=== PATIENT | male | born 1955 | race Caucasian/White ===

== ENCOUNTER 2018-05-29 16:15 | Emergency (ER) | payer BC ==
[2018-05-29 16:29] VITALS: BP 144/75
--- NOTE | 2018-05-29 16:52 | ED Physician Documentation ---
PD HPI LOWER EXT INJURY - Stated complaint Stated Complaint: R TOE PX - Chief complaint Chief Complaint: Trauma Ext - History obtained from History obtained from: Patient - History of Present Illness PD HPI LOW EXT INJURY LOCATION: Right, Toe (5th) Type of injury: Blunt / blow Where injury occurred: Home Timing - onset: Yesterday Worsened by: Moving, Palpating Similar symptoms before: Has not had sx before - Additional information Additional information: The patient is a 63-year-old male who stubbed his right little toe on the bedpost yesterday. He denies any other injuries. He terry taped the little toe to the fourth toe prior to arrival. Review of Systems Constitutional: denies: Fever Musculoskeletal: reports: Extremity pain (Right little toe.). denies: Extremity swelling Neurologic: denies: Focal weakness, Numbness PD PAST MEDICAL HISTORY - Past Medical History Cardiovascular: Hypertension, High cholesterol : Renal insuffiency Psych: Depression Musculoskeletal: Gout - Past Surgical History Past Surgical History: No - Present Medications Home Medications: Ambulatory Orders Medication Instructions Recorded Confirmed Albuterol Sulfate [Proventil Hfa] 90 mcg 09/29/15 Allopurinol 300 mg 09/29/15 Beclomethasone Dipropionate [Qvar] 09/29/15 Bupropion HCl [Wellbutrin Xl] 300 mg 09/29/15 Cholecalciferol (Vitamin D3) 1,000 unit 09/29/15 [Vitamin D3] Ciclopirox [Penlac] 09/29/15 09/29/15 Citalopram [CeleXA] 20 mg 09/29/15 Colchicine 0.6 mg 09/29/15 Ferrous Sulfate 325 mg 09/29/15 Furosemide [Lasix] 40 mg 09/29/15 Ipratropium [place] [Atrovent Hfa] 12.9 gm 09/29/15 Metoprolol Succinate 50 mg 09/29/15 Metoprolol Succinate [Toprol Xl] 50 mg 09/29/15 [place]-3 Acid Ethyl Esters [Lovaza] 4 gm 09/29/15 Omeprazole [PriLOSEC] 20 mg 09/29/15 Pravastatin Sodium [Pravachol] 80 mg 09/29/15 Psyllium [Metamucil] 0.52 gm 09/29/15 Ropinirole HCl [Requip] 1 mg 09/29/15 Tadalafil [Cialis] 5 mg 09/29/15 Valsartan [Diovan] 80 mg 09/29/15 traZODone [Desyrel] 50 mg 09/29/15 - Allergies Allergies/Adverse Reactions: Allergies Allergy/AdvReac Type Severity Reaction Status Date / Time lactose Allergy Unknown Verified 05/29/18 16:29 lorazepam Allergy Unknown Verified 05/29/18 16:29 NSAIDS (Non-Steroidal Allergy Unknown Verified 05/29/18 16:29 Anti-Inflamma oyster extract Allergy Unknown Verified 05/29/18 16:29 Sulfa (Sulfonamide Allergy Rash Verified 05/29/18 16:29 Antibiotics) tramadol AdvReac Hallucinati Verified 05/29/18 16:29 ons warfarin AdvReac Unknown Verified 05/29/18 16:29 zolpidem tartrate * AdvReac Hallucinati Verified 05/29/18 16:29 [From Ambien] ons - Social History Does the pt smoke?: No Smoking Status: Never smoker Does the pt drink ETOH?: Yes Does the pt have substance abuse?: No - Immunizations Immunizations are current?: Yes PD ED PE NORMAL - Vitals Vital signs reviewed: Yes (Borderline systolic hypertension.) - General General: Alert and oriented X 3, Well developed/nourished, Other (Overweight.) - HEENT HEENT: Atraumatic - Respiratory Respiratory: No respiratory distress - Derm Derm: No rash - Extremities Extremities: Other (There is swelling, slight ecchymosis, with tenderness to palpation of the right little toe. There is no tenderness to palpation of the foot or the other toes. There is no break in the integument. Distal neurovascular is intact.) - Neuro Neuro: Alert and oriented X 3, No motor deficit, No sensory deficit Results - Vitals Vitals: Oxygen O2 Source Room air PD MEDICAL DECISION MAKING - ED course Complexity details: considered differential, d/w patient ED course: The patient's presentation is significant for contusion to the right little toe. I discussed with him that an x-ray would be of limited clinical benefit, in that it would not result in modification of treatment regardless of whether it showed a fracture or not. I advised him that treatment would be terry taping of the toe regardless. Given this advice he chooses to forego x-ray examination. I discussed with him the expected course of injury, symptomatic treatment, as well as potentially worrisome signs or symptoms that should prompt reevaluation. Departure - Departure Disposition: 01 Home, Self Care Clinical Impression: Encounter for medical screening examination Injury of toe on right foot Qualifiers: Encounter type: initial encounter Qualified Code(s): S99.921A - Unspecified injury of right foot, initial encounter Condition: Stable Instructions: ED Contusion Lower Ext Follow-Up: Carlos Alberto Bryan MD [Primary Care Provider] - Comments: Keep your right foot elevated as much the time as possible. You can use acetaminophen up to 650 mg 4 times daily. Keep your little toe terry taped to the fourth toe. Let pain be your guide to activity level. Follow-up with your primary physician, or return to the emergency department, if you develop increasing pain or swelling, or otherwise worsening symptoms. Discharge Date/Time: 05/29/18 16:55
== END 2018-05-29 16:55 | disposition home or self-care (01) ==
LOC: ED 16:15
DX: S99.921A Unspecified injury of right foot, initial encounter (principal); W22.09XA Striking against other stationary object, initial encounter; Y92.009 Unspecified place in unspecified non-institutional (private) residence as the place of occurrence of the external cause; I10 Essential (primary) hypertension; E78.00 Pure hypercholesterolemia, unspecified
CPT/HCPCS: 99282; 99283

== ENCOUNTER 2020-09-26 03:26 | Emergency (ER) | payer BC ==
--- NOTE | 2020-09-26 03:44 | ED Physician Documentation ---
PD HPI BACK PAIN - Stated complaint Stated Complaint: BACK PX - Chief complaint Chief Complaint: Back Pain - History obtained from History obtained from: Patient - History of Present Illness Timing - onset: Enter time (10:30), Today Timing - duration: Hours Timing - details: Abrupt onset Pain level now: 8 Location: Lower, Right, Left Quality: Pain, Spasm Associated symptoms: No: Fever, Weakness, Numbness, Incontinent of urine, Unable to urinate, Hematuria, Incontinent of stool Improves with: Rest Worsened by: Movement Similar symptoms before: Has not had sx before Recently seen: Not recently seen - Additional information Additional information: has back pain on episodic but chronic basis, c/o steadily progressive , and now severe, low back pain with spasms. the pain is across his lower back and is distinctly worse with movement. Onset of this severe pain was 10:30 AM when getting out of a car. Review of Systems Constitutional: denies: Fever GI: reports: Reviewed and negative : denies: Unable to Void, Incontinent Musculoskeletal: reports: Back pain. denies: Extremity pain, Extremity swelling Neurologic: denies: Generalized weakness, Focal weakness, Numbness PD PAST MEDICAL HISTORY - Past Medical History Past Medical History: Yes Cardiovascular: Hypertension, High cholesterol : Renal insuffiency Psych: Depression Musculoskeletal: Gout - Past Surgical History Past Surgical History: No - Present Medications Home Medications: Ambulatory Orders Medication Instructions Recorded Confirmed Beclomethasone Dipropionate [Qvar] 40 mcg PO 09/29/15 Bupropion HCl [Wellbutrin Xl] 300 mg 09/29/15 Cholecalciferol (Vitamin D3) 1,000 unit 09/29/15 [Vitamin D3] Ciclopirox [Penlac] 6.6 ml PO 09/29/15 09/29/15 Citalopram [CeleXA] 20 mg 09/29/15 Colchicine 0.6 mg 09/29/15 Ferrous Sulfate 325 mg 09/29/15 Furosemide [Lasix] 40 mg 09/29/15 Ipratropium [place] [Atrovent Hfa] 12.9 gm 09/29/15 [place]-3 Acid Ethyl Esters [Lovaza] 4 gm 09/29/15 Omeprazole [PriLOSEC] 20 mg 09/29/15 Psyllium [Metamucil] 0.52 gm 09/29/15 Valsartan [Diovan] 80 mg 09/29/15 allopurinoL [Allopurinol] 300 mg 09/29/15 traZODone [Desyrel] 50 mg 09/29/15 Cyclobenzaprine [Flexeril] 10 mg PO TID PRN #20 tablet 09/26/20 Metoprolol Succinate [Toprol Xl] 25 mg PO DAILY 09/26/20 09/26/20 Sildenafil Citrate 100 mg PO 09/26/20 oxyCODONE [Roxicodone] 5 - 10 mg PO Q6H PRN #20 tablet 09/26/20 - Allergies Allergies/Adverse Reactions: Allergies Allergy/AdvReac Type Severity Reaction Status Date / Time lactose Allergy Unknown Verified 09/26/20 03:43 lorazepam Allergy Unknown Verified 09/26/20 03:43 NSAIDS (Non-Steroidal Allergy Unknown Verified 09/26/20 03:43 Anti-Inflamma oyster extract Allergy Unknown Verified 09/26/20 03:43 Sulfa (Sulfonamide Allergy Rash Verified 09/26/20 03:43 Antibiotics) tramadol AdvReac Hallucinati Verified 09/26/20 03:43 ons warfarin AdvReac Unknown Verified 09/26/20 03:43 zolpidem tartrate * AdvReac Hallucinati Verified 09/26/20 03:43 [From Jessyien] ons - Social History Does the pt smoke?: No Smoking Status: Never smoker Does the pt drink ETOH?: Yes Does the pt have substance abuse?: No - Immunizations Immunizations are current?: Yes PD ED PE NORMAL - Vitals Vital signs reviewed: Yes - General General: Alert and oriented X 3, Well developed/nourished, Other (appears to be in obvious painful distress,worse with any movement involving lower back) - Abdomen Abdomen: Soft, Non tender - Back Back: No spinal TTP - Derm Derm: Normal color, Warm and dry, No rash - Extremities Extremities: No edema - Neuro Neuro: Alert and oriented X 3, speech writer 2-12 intact, No motor deficit (5/5 bilateral knee extension, hip flexion, dorsi/plantar flexion at foot/ankle), No sensory deficit Results - Vitals Vitals: Oxygen O2 Source Room air PD MEDICAL DECISION MAKING - ED course Complexity details: re-evaluated patient, considered differential, d/w patient ED course: Chronic low back pain but patient says this is the worst it has even been. No red flags such as fever, weakness, loss of bowel or bladder continence, numbness. He reports adequate relief after 10mg PO flexeril and 1mg IM dilaudid (multiple allergies limit pharmaceutical options available). He had been taking vicodin without relief. He is provided 10mg Oxycodone prior to discharge, and rx for flexeril and oxycodone, instructed to return if worse, and to follow up with PMD next available appointment I am prescribing a short course of short-acting opioid pain medication for this patient. I have reviewed the patients SANITARY AIDE and no concerning findings were noted. I have discussed that the opioids are for short term therapy only, and will not be refilled from the ED. Departure - Departure Disposition: 01 Home, Self Care Clinical Impression: Back pain Qualifiers: Back pain location: low back pain Chronicity: acute Back pain laterality: bilateral Sciatica presence: without sciatica Qualified Code(s): M54.5 - Low back pain Condition: Good Instructions: ED Neck Back Pain General Follow-Up: Paco Patterson MD [Primary Care Provider] - Prescriptions: Cyclobenzaprine [Flexeril] 10 mg PO TID PRN #20 tablet PRN Reason: Spasms oxyCODONE [Roxicodone] 5 - 10 mg PO Q6H PRN #20 tablet PRN Reason: Pain Comments: I am prescribing a short course of narcotic pain medication for you. These are potentially dangerous and addictive medications that should be used carefully. These medications may constipate you. Take an [id number]-pkv-pkrdwyc stool softener (docusate) twice daily with plenty of water while taking these medications. If you go 24 hours without a bowel movement, take [id number] miralax, per package instructions. Do not drink or drive while taking these medications. If you received narcotic or sedating medications while in the emergency department, do not drive for 24 hours. Store this medication in a safe, secure place and out of reach of children. It is a violation of federal law to give or sell this medication to another person or to use in a manner other than prescribed. The ED will not refill narcotic prescriptions, including prescriptions lost or stolen. To dispose of unwanted medications: 1. [facility] at [address] in [place] has a medication drop box. They accept prescription medications (in pill form) Friday through Friday 9:00 a.m. to 5:00 p.m. 2. The [facility] accepts prescription medications (in pill form only) for disposal year round. Call for more information. 3. Contact the [facility] for the next [facility] sponsored prescription drug collection event. , [phone], or [phone]; Discharge Date/Time: 09/26/20 05:30
[2020-09-26] MEDS ORDERED: HYDROmorphone 1 MG/ML CARPUJECT IM STA (04:09)
[2020-09-26] MEDS ORDERED: CYCLOBENZAPRINE 10 MG TABLET PO STA (04:09)
[2020-09-26 05:14] VITALS: BP 154/90
[2020-09-26] MEDS ORDERED: oxyCODONE 5 MG TABLET PO STA (05:16)
== END 2020-09-26 05:30 | disposition home or self-care (01) ==
LOC: ED 03:26
DX: M54.5 Low back pain (principal); G89.29 Other chronic pain
CPT/HCPCS: 99283; 99284; A9270; J1170

== ENCOUNTER 2022-02-02 15:54 | Emergency (ER) | payer BC, MEDICARE ==
[2022-02-02 16:04] VITALS: BP 148/77
--- NOTE | 2022-02-02 16:11 | ED Physician Documentation ---
PD HPI HEENT - Stated complaint Stated Complaint: CONGESTION/LT EAR PX - Chief complaint Chief Complaint: Resp - History obtained from History obtained from: Patient (Diagnosed with COVID 6 days ago, now severe left earache since last night. No fevers.) Review of Systems Constitutional: reports: Chills, Myalgias Nose: reports: Rhinorrhea / runny nose Respiratory: reports: Cough. denies: Dyspnea PD PAST MEDICAL HISTORY - Past Medical History Cardiovascular: Hypertension, High cholesterol : Renal insuffiency Psych: Depression Musculoskeletal: Gout - Past Surgical History Past Surgical History: No - Present Medications Home Medications: Ambulatory Orders Medication Instructions Recorded Confirmed Beclomethasone Dipropionate [Qvar] 40 mcg PO 09/29/15 Bupropion HCl [Wellbutrin Xl] 300 mg 09/29/15 Cholecalciferol (Vitamin D3) 1,000 unit 09/29/15 [Vitamin D3] Ciclopirox [Penlac] 6.6 ml PO 09/29/15 09/29/15 Citalopram [CeleXA] 20 mg 09/29/15 Colchicine 0.6 mg 09/29/15 Ferrous Sulfate 325 mg 09/29/15 Furosemide [Lasix] 40 mg 09/29/15 Ipratropium [place] [Atrovent Hfa] 12.9 gm 09/29/15 [place]-3 Acid Ethyl Esters [Lovaza] 4 gm 09/29/15 Omeprazole [PriLOSEC] 20 mg 09/29/15 Psyllium [Metamucil] 0.52 gm 09/29/15 Valsartan [Diovan] 80 mg 09/29/15 allopurinoL [Allopurinol] 300 mg 09/29/15 traZODone [Desyrel] 50 mg 09/29/15 Cyclobenzaprine [Flexeril] 10 mg PO TID PRN #20 tablet 09/26/20 Metoprolol Succinate [Toprol Xl] 25 mg PO DAILY 09/26/20 09/26/20 Sildenafil Citrate 100 mg PO 09/26/20 oxyCODONE [Roxicodone] 5 - 10 mg PO Q6H PRN #20 tablet 09/26/20 Amoxicillin 500 mg PO TID #30 cap 02/02/22 HYDROcod/ACETAM 5/325 [Alkol 5/325] 1 - 2 tab PO Q6H PRN #7 tablet 02/02/22 - Allergies Allergies/Adverse Reactions: Allergies Allergy/AdvReac Type Severity Reaction Status Date / Time lactose Allergy Unknown Verified 02/02/22 16:04 lorazepam Allergy Unknown Verified 02/02/22 16:04 NSAIDS (Non-Steroidal Allergy Unknown Verified 02/02/22 16:04 Anti-Inflamma oyster extract Allergy Unknown Verified 02/02/22 16:04 Sulfa (Sulfonamide Allergy Rash Verified 02/02/22 16:04 Antibiotics) tramadol AdvReac Hallucinati Verified 02/02/22 16:04 ons warfarin AdvReac Unknown Verified 02/02/22 16:04 zolpidem tartrate * AdvReac Hallucinati Verified 02/02/22 16:04 [From Jessyien] ons - Social History Does the pt smoke?: No Smoking Status: Never smoker Does the pt drink ETOH?: Yes Does the pt have substance abuse?: No - Immunizations Immunizations are current?: Yes PD ED PE NORMAL - Vitals Vital signs reviewed: Yes - General General: Alert and oriented X 3, No acute distress - HEENT HEENT: Other (Severe left otitis media, right TM normal) - Respiratory Respiratory: No respiratory distress - Neuro Neuro: Alert and oriented X 3, Normal speech Results - Vitals Vitals: Vital Signs - 24 hr 02/02/22 15:59 Temperature 36.5 C Heart Rate 88 Respiratory 24 Rate Blood Pressure 148/77 H O2 Saturation 100 Oxygen O2 Source Room air Departure - Departure Disposition: 01 Home, Self Care Clinical Impression: LOM (left otitis media) Condition: Good Record reviewed to determine appropriate education?: Yes Instructions: ED Otitis Media Acute Adult Prescriptions: Amoxicillin 500 mg PO TID #30 cap HYDROcod/ACETAM 5/325 [Alkol 5/325] 1 - 2 tab PO Q6H PRN #7 tablet PRN Reason: Pain Comments: I sent your prescriptions electronically to [facility] in [place]. Recheck with your doctor in 1 week. Return for new or worsening symptoms. I am prescribing a short course of narcotic pain medication for you. These are potentially dangerous and addictive medications that should be used carefully. These medications may constipate you. Take an jkuu-nmx-tqavstj stool softener (docusate) twice daily with plenty of water while taking these medications. If you go 24 hours without a bowel movement, take muot-ctv-xjesnnt miralax, per package instructions. Do not drink or drive while taking these medications. If you received narcotic or sedating medications while in the emergency department, do not drive for 24 hours. Store this medication in a safe, secure place and out of reach of children. It is a violation of federal law to give or sell this medication to another person or to use in a manner other than prescribed. The ED will not refill narcotic prescriptions, including prescriptions lost or stolen. To dispose of unwanted medications: 1. [facility] at [address] in [place] has a medication drop box. They accept prescription medications (in pill form) Friday through Friday 9:00 a.m. to 5:00 p.m. 2. The [facility] accepts prescription medications (in pill form only) for disposal year round. Call for more information. 3. Contact the [facility] for the next [facility] sponsored prescription drug collection event. , [phone], or [phone]; Note that many narcotic pain relievers also contain Tylenol/acetaminophen. Please ensure that your total dose of acetaminophen from all sources does not exceed 3 g (3000 mg) per day.
== END 2022-02-02 16:18 | disposition home or self-care (01) ==
LOC: ED 15:54
DX: H66.92 Otitis media, unspecified, left ear (principal)
CPT/HCPCS: 99282; 99283

== ENCOUNTER 2023-04-11 08:00 | Outpatient (CLI) | payer MEDICARE ==
--- NOTE | 2023-04-11 17:05 | XRAY Report ---
PROCEDURE: Chest 2V INDICATIONS: URI TECHNIQUE: 2 views of the chest were acquired. COMPARISON: None. FINDINGS: Surgical changes and devices: None. Lungs and pleura: No pleural effusions or pneumothorax. Lungs are clear. Mediastinum: Mediastinal contours appear normal. Heart size is normal. Bones and chest wall: Dystrophic changes of the right scapula. Overlying soft tissues appear unrema rkable. IMPRESSION: No acute cardiopulmonary process. Dystrophic changes of the right scapula, possibly posttraumatic. Correlate with remote history and, i f absent, consider outpatient CT of the shoulder. Reviewed by: Humberto Peralta MD on 04/11/2023 5:04 PM PST Approved by: Humberto Peralta MD on 04/11/2023 5:04 PM PST Station ID: [id number]
== END 2023-04-11 23:59 | disposition home or self-care (01) ==
LOC: DI.S 08:00
PROVIDERS: ATTEND Registered Nurse
DX: J06.9 Acute upper respiratory infection, unspecified (principal)

== ENCOUNTER 2023-08-05 14:44 | Outpatient (CLI) | payer MEDICARE ==
[2023-08-05 20:06] LABS: BASOPHILS % (AUTO) 0.5 %; EOSINOPHILS # (AUTO) 0.2 10^3/uL (0.0-0.7); EOSINOPHILS % (AUTO) 3.4 %; HCT - HEMATOCRIT 36.6 % (42.0-52.0); HGB - HEMOGLOBIN 11.2 g/dL (14.0-18.0); LYMPHOCYTES # (AUTO) 1.3 10^3/uL (1.5-3.5); LYMPHOCYTES % (AUTO) 23.6 %; MEAN CORPUSCULAR HEMOGLOBIN 28.8 pg (27.0-31.0); MEAN CORPUSCULAR HGB CONC 30.6 g/dL (32.0-36.0); MEAN CORPUSCULAR VOLUME 94.1 fL (80.0-94.0); MEAN PLATELET VOLUME 11.2 fL (7.4-11.4); MONOCYTES # (AUTO) 0.4 10^3/uL (0.0-1.0); MONOCYTES % (AUTO) 7.8 %; NEUTROPHILS # (AUTO) 3.6 10^3/uL (1.5-6.6); NEUTROPHILS % (AUTO) 64.3 %; PLT - PLATELET COUNT 174 10^3/uL (130-450); RED BLOOD COUNT 3.89 10^6/uL (4.70-6.10); RED CELL DISTRIBUTION WIDTH 14.2 % (12.0-15.0); WHITE BLOOD COUNT 5.6 x10^3/uL (4.8-10.8)
[2023-08-05 20:22] LABS: CHOL/HDL RATIO 2.2 (<5.0); CHOLESTEROL 179 mg/dL; HDL CHOLESTEROL 81 mg/dL; LDL CHOLESTEROL,CALCULATED 75 mg/dL; LDL/HDL RATIO 0.9 (<3.6); TRIGLYCERIDES 115 mg/dL (48-352); URIC ACID 6.5 mg/dL (4.4-7.6); VLDL CHOLESTEROL 23 mg/dL
[2023-08-05 20:45] LABS: ALBUMIN 3.9 g/dL (3.2-5.5); ALBUMIN/GLOBULIN RATIO 1.5 (1.0-2.2); ALKALINE PHOSPHATASE 83 IU/L (42-121); ALT ALANINE AMINOTRANSFERASE 19 IU/L (10-60); AST ASPARTATE AMINOTRANSFERASE 15 IU/L (10-42); BILIRUBIN,TOTAL 0.8 mg/dL (0.2-1.0); BUN - BLOOD UREA NITROGEN 87 mg/dL (6-20); CALCIUM 9.4 mg/dL (8.5-10.3); CARBON DIOXIDE - CO2 22 mmol/L (21-32); CHLORIDE 108 mmol/L (101-111); CREATININE 2.7 mg/dL (0.6-1.3); GFR - MDRD 24 (>89); GLUCOSE 103 mg/dL (74-104); SODIUM 137 mmol/L (135-145); TOTAL PROTEIN 6.5 g/dL (6.4-8.9)
== END 2023-08-05 14:45 | disposition home or self-care (01) ==
LOC: LAB.S 14:44
PROVIDERS: ATTEND Hospitalist
DX: Z00.00 Encounter for general adult medical examination without abnormal findings (principal); I10 Essential (primary) hypertension; E78.5 Hyperlipidemia, unspecified; N40.1 Benign prostatic hyperplasia with lower urinary tract symptoms; R39.14 Feeling of incomplete bladder emptying; M1A.0710 Idiopathic chronic gout, right ankle and foot, without tophus (tophi)
CPT/HCPCS: 36415; 80053; 80061; 83721; 84153; 84550; 85025